=== PATIENT | female | born 1970 | race Caucasian/White ===

== ENCOUNTER 2017-08-11 18:03 | Emergency (ER) | payer OTHER ==
[~2017-08-11] VITALS: Ht 149.9 cm; Wt 67.6 kg
[~2017-08-11 18:03] MED LIST: PHENERGAN25 MG PR; TORADOL10 MG PO
[2017-08-11 19:26] LABS: HEMATOCRIT 44.3 % (36.0-46.0); MCH 29.9 PG (29.0-34.0); MCHC 33.4 G/DL (30.0-36.0); MCV 89.5 FL (83-99); MEAN PLAT.VOLUME 10.5 uM^3 (9.5-12.4); PLATELET COUNT 331 K/uL (156-360); RBC DIS.WIDTH-CV 12.8 % (11.8-14.6); RBC DIS.WIDTH-SD 41.7 % (39-53); RED BLOOD COUNT 4.95 M/uL (3.80-5.20); WHITE BLOOD COUNT 11.7 K/uL (4.1-10.2)
[2017-08-11 19:30] LABS: ADD MIUA? YES; BILIRUBIN NEGATIVE; BLOOD MODERATE; COLOR YELLOW ((YELLOW)); GLUCOSE (STRIP) NEGATIVE; KETONES NEGATIVE; LEUKOCYTES TRACE; NITRITE NEGATIVE; PROTEIN (STRIP) 100; SPECIFIC GRAVITY 1.025 (1.000-1.030); UROBILINOGEN 0.2 MG/DL (0.2-1.0)
[2017-08-11 19:36] LABS: CHLORIDE 106 mEq/L (99-109); POTASSIUM 3.9 mEq/L (3.7-5.4); SODIUM 141 mEq/L (136-147)
[2017-08-11 19:37] LABS: GLUCOSE 114 mg/dL (70-99)
[2017-08-11 19:38] LABS: BACTERIA NONE SEEN /HPF; EPITHELIAL CELLS RARE /HPF; MUCUS NONE SEEN /LPF; UCUL ADDED? NO; WHITE BLOOD CELLS 0-5 /HPF (0-5)
[2017-08-11 19:39] LABS: ANION GAP 11 MEQ/L (2-14)
[2017-08-11 19:41] LABS: GFR ESTIMATE (CALCULATED) > 59 mL/min/
[2017-08-11 19:42] LABS: UREA NITROGEN (BUN) 11 mg/dL (9-23)
[2017-08-11 19:53] LABS: QUANTITATIVE HCG < 4.0 MIU/ML
[2017-08-11] MEDS ORDERED: ZOFRAN ODT8 MG PO (20:40)
[2017-08-11] MEDS ORDERED: NORCO 5/3251 TABLET PO (20:40)
[2017-08-11 20:59] VITALS: BP 139/93
== END 2017-08-11 21:00 | disposition home or self-care (01) ==
LOC: EME 18:03
DX: N20.0 Calculus of kidney (principal); Z87.442 Personal history of urinary calculi; Z91.040 Latex allergy status
CPT/HCPCS: 80048; 81003; 84702; 85027; 99281; 99283

== ENCOUNTER 2017-10-17 08:46 | Day surgery (SDC) | payer OTHER ==
[~2017-10-17] VITALS: Ht 149.9 cm; Wt 68.0 kg
[~2017-10-17 08:46] MED LIST changes: +NORCO 5/3251 TABLET PO; +TYLENOL EXTRA500 MG PO; +ZOFRAN ODT8 MG PO; +ZYRTEC5 MG PO
[2017-10-17 09:36] LABS: BASOPHIL COUNT 0.1 K/uL (0-0.1); EOSINOPHIL (%) 5.7 % (0-5); EOSINOPHIL COUNT 0.4 K/uL (0-0.3); HEMATOCRIT 42.7 % (36.0-46.0); IMMATURE GRANULOCYTE (%) 0.3 % (0.0-0.7); INSTRUMENT ABS NEUTROPHIL CT 3.8 K/uL; MCH 30.1 PG (29.0-34.0); MCHC 33.7 G/DL (30.0-36.0); MCV 89.3 FL (83-99); MEAN PLAT.VOLUME 10.3 uM^3 (9.5-12.4); MONOCYTE (%) 5.1 % (3-12); MONOCYTE COUNT 0.4 K/uL (0-0.8); NEUTROPHIL (%) 48.7 % (45-76); NEUTROPHIL COUNT 3.8 K/uL (1.8-6.4); PLATELET COUNT 305 K/uL (156-360); RBC DIS.WIDTH-CV 12.6 % (11.8-14.6); RBC DIS.WIDTH-SD 41.5 % (39-53); RED BLOOD COUNT 4.78 M/uL (3.80-5.20); WHITE BLOOD COUNT 7.7 K/uL (4.1-10.2)
[2017-10-17 10:01] VITALS: BP 129/80
[2017-10-17] MEDS ORDERED: IBUPROFEN800 MG PO (11:31)
[2017-10-17] MEDS ORDERED: ENDOCET 5-3251 EACH PO (11:31)
[2017-10-17 12:27] VITALS: BP 124/70
[2017-10-17 13:34] VITALS: BP 123/70
[2017-10-18 11:19] LABS: INTERNAL CONTROL VALID? YES
== END 2017-10-17 13:55 | disposition home or self-care (01) ==
LOC: SDC 08:46
PROVIDERS: Obstetrics & Gynecology Obstetrics
DX: N84.1 Polyp of cervix uteri (principal); N84.0 Polyp of corpus uteri; N95.0 Postmenopausal bleeding
CPT/HCPCS: 84703; 85025; 88305; J1100; J1170; J1885; J2250; J2405; J2765; J3010; Q0175